=== PATIENT | male | born 1995 | race Caucasian/White ===

== ENCOUNTER 2016-07-17 15:00 | Inpatient (IN) | payer OTHER ==
--- NOTE | ~2016-07-17 | PN ---
Unit #: [id number] #: [id number] Patient: FRANK GARCIA [id number] [facility] [address] [place] [address] [id number] MR#: [id number] NAME: FRANK GARCIA ROOM: [facility][Note 3] Age: 21 Sex: M Admission Date: 07/17/2016 : 1995 Attending Physician: Clarice Fontana M.D. Admitting Physician: Clarice Fontana M.D. Primary Care Physician: Primary Care Physician Doris MCGEE PROGRESS NOTES DATE 07/19/2016 DISCUSSION Mr. Garcia is a 21-year-old, white male who was seen today and chart was reviewed and case was discussed with the staff. He has been anxious, withdrawn and rather seclusive to himself. Meanwhile, he has been cooperative with treatment recommendations. He has been taking medications and tolerating them fairly well with no reported side effects. MENTAL STATUS EXAM Young white male who was casually dressed with fair personal hygiene, appears to be in no acute distress or discomfort. He was awake and alert on interaction with intact orientation. His mood was anxious with congruent affect. He denies any suicidal or homicidal ideation. Also, denies any auditory or visual hallucinations. His insight and judgement remains slightly impaired. TREATMENT PLAN 1. We will continue him on his current medications and treatment protocol. We will monitor his response to the medication and make further adjustments as needed. 2. We will continue to follow up. Dictated by... Jake Cobb/marty TD: 07/20/2016 16:49 JOB #: [id number] Unit #: [id number] #: [id number] Patient: FRANK GARCIA PROGRESS NOTES Page 1 of 1 X Clarice Fontana MD PROGRESS NOTE
--- NOTE | ~2016-07-17 | PN ---
Unit #: [id number] #: [id number] Patient: FRANK GARCIA [id number] [facility] [address] [place] [address] [id number] I MR#: [id number] NAME: FRANK GARCIA ROOM: [facility] Age: 21 Sex: M Admission Date: 07/17/2016 : 1995 Attending Physician: Clarice Fontana M.D. Admitting Physician: Clarice Fontana M.D. Primary Care Physician: Primary Care Physician Doris MCGEE PROGRESS NOTES DATE 07/20/2016 DISCUSSION Mr. Garcia is a 21-year-old, white male with mood disorder and psychosis who was seen today and chart was reviewed and case was discussed with the staff. He had a rough day yesterday with increasing agitation, hostility and aggression and staff reported that he was pacing and did become violent and as such intramuscular injection of Thorazine was given to calm him down and he remains rather sedated as this morning and we will continue to monitor his response to treatment interventions and we will make further adjustments as needed. Dictated by... Jake Cobb/marty TD: 07/21/2016 20:57 JOB #: [id number] [facility] PROGRESS NOTES Page 1 of 1 X Clarice Fontana MD PROGRESS NOTE
--- NOTE | ~2016-07-17 | PN ---
Unit #: [id number] #: [id number] Patient: FRANK GARCIA [id number] [facility] [address] [place] [address] [id number] I MR#: [id number] NAME: FRANK GARCIA ROOM: P255 Age: 21 Sex: M Admission Date: 07/17/2016 : 1995 Attending Physician: Clarice Fontana M.D. Admitting Physician: Clarice Fontana M.D. Primary Care Physician: Primary Care Physician Doris MCGEE PROGRESS NOTES DATE 07/22/2016 DISCUSSION Mr. Garcia is a 21-year-old, white male who was seen today and chart was reviewed and case was discussed with the staff. He remains anxious, withdrawn and reports uncomfortable and has been wanting to go to jail rehab level of care. Meanwhile, he has been taking medications and tolerating them fairly well with no reported side effects. MENTAL STATUS EXAM Young white male who was casually dressed with fair personal hygiene, appears to be in no acute distress or discomfort. He was awake and alert on interaction with intact orientation. His mood was anxious with congruent affect. He denies any suicidal or homicidal ideation. Also, denies any auditory or visual hallucinations. His insight and judgement remains slightly impaired. TREATMENT PLAN 1. We will continue him on his current medications and treatment protocol. We will monitor his response to the medication and make further adjustments as needed. 2. We will continue to follow up. Dictated by... Jake Cobb/marty TD: 07/23/2016 02:43 JOB #: [id number] Unit #: [id number] #: [id number] Patient: FRANK GARCIA PROGRESS NOTES Page 1 of 1 X Clarice Fontana MD PROGRESS NOTE
--- NOTE | ~2016-07-17 | HP ---
Unit #: [id number] #: [id number] Patient: FRANK DELATORRE [id number] [facility] [address] [place] [address] [id number] I MR#: [id number] NAME: FRANK DELATORRE ROOM: [facility] Age: 21 Sex: M Admission Date: 07/17/2016 : 1995 Attending Physician: Clarice Fontana M.D. Admitting Physician: Clarice Fontana M.D. Primary Care Physician: Primary Care Physician No HISTORY AND PHYSICAL HISTORY OF PRESENT ILLNESS Frank is a 21-year-old male admitted on 07/17/[address] [place] [address] for psychosis. He has been making suicidal threats and having delusions and paranoia. PAST MEDICAL HISTORY IBS and GERD. PAST SURGICAL HISTORY None. SOCIAL HISTORY Smokes less than 1 pack of cigarettes daily. Occasional social alcohol use and history of occasional marijuana use. He is currently single and living alone. FAMILY HISTORY Noncontributory. REVIEW OF SYSTEMS CONSTITUTIONAL: No fever or chills. HEENT: Denies any sore throat, ear pain or runny nose. CARDIOVASCULAR: Denies chest pain, irregular heart rhythm or palpitations. CHEST: Denies shortness of breath or cough. No hemoptysis. GASTROINTESTINAL: Denies nausea, vomiting, diarrhea or chronic constipation. ENDOCRINE: Denies history of increased thirst or urination. No recent significant weight loss or gain. GENITOURINARY: Denies dysuria, frequency, or hematuria. SKIN: Denies any rashes. HEMATOLOGIC: Denies history of increased bleeding or bruising. MUSCULOSKELETAL: Denies any hot, swollen joints. No generalized muscle pain. NEUROLOGIC: Denies problems with vision or speech. No frequent, severe headaches. No numbness, tingling or weakness in any extremities. Denies loss of bladder or bowel control. CURRENT MEDICATIONS 1. Neurontin. 2. Paxil. ALLERGIES No known drug allergies. Unit #: [id number] #: [id number] Patient: FRANK DELATORRE PHYSICAL EXAMINATION GENERAL: Alert, oriented, no acute distress. VITAL SIGNS: Blood pressure 124/66, heart rate 73, temperature 98.3. HEIGHT: 5 feet 9. WEIGHT: 131 pounds. SKIN: Warm, dry. No rashes or lesions, track white, cuts, etc. HEENT: Normocephalic. TMs not viewed. Oronasal passages clear. Conjunctivae clear. PERRLA. EOM is intact. NECK: No lymphadenopathy or thyromegaly. HEART: Regular rate and rhythm. No murmur, gallop, or rub. LUNGS: Clear to auscultation bilaterally. ABDOMEN: Soft, nontender without palpable masses or hepatosplenomegaly. : Not assessed. EXTREMITIES: No evidence of cyanosis, clubbing, or edema. Moves all extremities independently without obvious deficit. NEUROLOGICAL: Grossly within normal limits. Cranial Nerves: II: Visual gil are intact. III, IV AND : Extraocular movements are intact. Pupils are equal, round and reactive to light. V: Facial sensation is grossly normal. VII: Facial movements and expression are normal. VIII: Auditory acuity grossly intact. IX, X: Uvula is midline. Phonation is normal. XI: Patient shrugs shoulders and turns head normally. XII: Tongue protrudes in the midline. Sensory and Motor Function: Sensory and motor sensation is grossly normal. Motor: moves all extremities well. Coordination: Gait is normal. Deep Tendon Reflexes: Intact. IMPRESSION 1. Psychiatric admission. 2. Irritable bowel syndrome. 3. Gastroesophageal reflux disease. RECOMMENDATIONS PSYCHIATRIC: Per psychiatrist. MEDICAL: No contraindication to participating in this facility's activities. MEDICAL PROGNOSIS Good. MEDICAL CONDITION Stable. Dictated by... Emili Mcmanus TD: 07/18/2016 10:57 JOB #: [id number] Unit #: [id number] #: [id number] Patient: FRANK DELATORRE HISTORY AND PHYSICAL Page 1 of 1 X DIANE JORGENSEN APRN HISTORY AND PHYSICAL
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
--- NOTE | ~2016-07-17 | PN ---
Unit #: [id number] #: [id number] Patient: FRANK GARCIA [id number] [facility] [address] [place] [address] [id number] I MR#: [id number] NAME: FRANK GARCIA ROOM: [facility] Age: 21 Sex: M Admission Date: 07/17/2016 : 1995 Attending Physician: Clarice Fontana M.D. Admitting Physician: Clarice Fontana M.D. Primary Care Physician: Primary Care Physician Doris CHILDS NOTES DATE OF SERVICE 07/21/2016 DISCUSSION Mr. Garcia is a 21-year-old white male with mood disorder and psychosis who was seen today. Chart was reviewed and case was discussed with the staff. He has been anxious and withdrawn though has not shown any agitation or irritability and has been cooperative with the treatment recommendations and has been taking the medications and tolerating them fairly well with no reported side effects. MENTAL STATUS EXAMINATION Young white male who is casually dressed with fair personal hygiene and appears to be in no acute distress or discomfort. The patient was awake and alert on interaction with intact orientation. His mood is anxious with congruent affect. He denies any suicidal or homicidal ideations. His insight and judgment remain slightly impaired. TREATMENT PLAN 1. We will continue him on his current medications and treatment protocol. We will monitor his response and make further adjustments as needed. 2. We will continue to follow up. Dictated by... Clarice Fontana M.D. IAA/bzg TD: 07/22/2016 08:19 JOB #: [id number] Unit #: [id number] #: [id number] Patient: FRANK GARCIA EUNJERAD PROGRESS NOTES Page 1 of 1 X Clarice Fontana MD PROGRESS NOTE
--- NOTE | ~2016-07-17 | DS ---
Unit #: [id number] #: [id number] [facility] [id number] [facility] [address] [place] [address] [id number] I MR#: [id number] NAME: FRANK GARCIA ROOM: [facility] Age: 21 Sex: M Admission Date: 07/17/2016 : 1995 Discharge Date: 07/23/2016 Attending Physician: Clarice Fontana M.D. DISCHARGE SUMMARY IDENTIFYING DATA Mr. Garcia is a 21-year-old, single, white male, who is a resident of [place], [place] and was transferred to us from [facility] and was accompanied by his father. DISCHARGE DIAGNOSES Psychiatric: Major depressive disorder, recurrent, moderate, without psychotic features; cannabis abuse, mild; attention deficit hyperactivity disorder. Medical: None. Stressors: Moderate psychosocial stressors. HISTORY OF PRESENT ILLNESS Please see initial psychiatric evaluation for details. PAST PSYCHIATRIC HISTORY Please see initial psychiatric evaluation for details. PAST MEDICAL HISTORY Please see initial psychiatric evaluation for details. HOSPITAL COURSE The patient was admitted to the adult psychiatric unit at [facility]ie [facility] and was oriented to the hospital environment. Routine p.r.n. medications were initiated. Upon initial presentation, the patient was seen to be very bizarre, acutely psychotic, agitated, and exhibiting delusional behavior and as such, Seroquel was added and Paxil was maintained. He was taking the medications regularly and was having some agitation and aggression. There was an episode where we had to give him p.r.n. antipsychotics to cut down on his agitation and aggression. He was also complaining of significant difficulty focusing and concentrating, and having history of ADHD in the past and as such, Vyvanse was initiated. He was closely monitored. He was seen to be showing significant improvement in his mood and psychosis and was able to show complete resolution of his psychosis and his ability to carry on a meaningful conversation and was seen to be polite and pleasant with brighter affect, positive body language, was cheerful and socializing and interacting and was not seen to be a danger to self or anyone else, and was not making further criteria for inpatient psychiatric hospitalization and as such, it was decided that he will be discharged home and will continue treatment on an outpatient basis. Unit #: [id number] #: [id number] Patient: FRANK GARCIA DISCHARGE MEDICATIONS Paxil 40 mg at bedtime for depression, Seroquel 100 mg at bedtime for depression and Vyvanse 30 mg in the morning for ADHD. DISCHARGE CONDITION Stable. PROGNOSIS Fair. Dictated by... Jake Cobb/amado TD: 07/23/2016 07:07 JOB #: [id number] DISCHARGE SUMMARY Page 1 of 1 X Clarice Fontana MD X DISCHARGE SUMMARY
[2016-07-18 11:41] LABS: ALBUMIN SERUM 4.7 g/dL (3.5-5.0); BILIRUBIN,TOTAL 0.4 mg/dL (0.2-2.0); BUN/CREATININE RATIO 24.28; CALCIUM SERUM 9.5 mg/dL (8.4-10.2); CREATININE SERUM 0.7 mg/dL (0.6-1.4); POTASSIUM 4.6 mmol/L (3.5-5.1); PROTEIN TOTAL SERUM 7.4 g/dL (6.0-8.3)
[2016-07-18 11:50] LABS: URINE APPEARANCE CLOUDY; URINE BILIRUBIN NEG (NEG); URINE BLOOD NEG (NEG); URINE COLOR YELLOW; URINE GLUCOSE NEG (NEG); URINE KETONE NEG (NEG); URINE LEUKOCYTE ESTERASE NEG (NEG); URINE NITRATE NEG (NEG); URINE PROTEIN NEG (NEG); URINE SPECIFIC GRAVITY 1.022 (1.003-1.035)
[2016-07-20 12:23] LABS: BASOPHIL% 0.3 % (0-2.5); EOSINOPHIL# 0.1 X10e3 (0-0.7); EOSINOPHIL% 1.5 % (0.0-7.0); HEMATOCRIT 47.1 % (38.0-50.0); HEMOGLOBIN 15.8 gm/dL (13.0-16.0); LYMPHOCYTE# 2.1 X10e3 (1.0-3.5); LYMPHOCYTE% 26.7 % (17.0-45.0); MEAN CELL VOLUME 91.6 FL (83-96); MEAN CORPUSCULAR HEMOGLOBIN 30.7 PG (28-34); MEAN CORPUSCULAR HGB CONC 33.6 g/dL (30-36); MONOCYTE# 0.6 X10e3 (0-1.0); MONOCYTE% 7.5 % (3.0-12.0); PLATELET COUNT 234 X10e3 (140-420); RED BLOOD COUNT 5.14 X10e (3.90-5.60); RED CELL DISTRIBUTION WIDTH 12.6 % (11.0-15.5); WHITE BLOOD COUNT 7.8 X10e3 (4.0-10.5)
[2016-07-20 12:30] LABS: DIFF IND NO
== END 2016-07-23 13:00 | disposition home or self-care (01) | DRG 885 ==
LOC: P2L 15:00
PROVIDERS: Psychiatry & Neurology Psychiatry
DX: F33.1 Major depressive disorder, recurrent, moderate (principal); F17.210 Nicotine dependence, cigarettes, uncomplicated; F12.10 Cannabis abuse, uncomplicated; K21.9 Gastro-esophageal reflux disease without esophagitis; K58.9 Irritable bowel syndrome, unspecified
CPT/HCPCS: 80053; 81003; 85025; J3230